=== PATIENT | male | born 1950 | race Caucasian/White ===

== ENCOUNTER 2022-12-21 15:54 | Emergency (ER) | payer MEDICARE, MEDICAID ==
[~2022-12-21] VITALS: Ht 182.9 cm; Wt 109.8 kg
[2022-12-21 21:11] VITALS: BP 128/73; PULSE 65; RESP 16; TEMP 97.5; O2SAT 100
[2022-12-21 23:33] LABS: HEMATOCRIT 39.8 % (42.0-52.0); MONOCYTES # (AUTO) 0.4 X10'3 (0-0.9)
[2022-12-21 23:34] LABS: BASOPHILS % (AUTO) 0.8 % (0-1); EOSINOPHILS % (AUTO) 10.6 % (0-6); HEMOGLOBIN 13.2 g/dl (14.0-17.9); LYMPHOCYTES % (AUTO) 34.8 % (21-51); MEAN CORPUSCULAR HEMOGLOBIN 31.5 PG (27.0-31.0); MEAN CORPUSCULAR HGB CONC 33.2 g/dL (33.0-36.5); MEAN PLATELET VOLUME 8.2 FL (7.4-10.4); MONOCYTES % (AUTO) 6.3 % (2-12); NEUTROPHILS % (AUTO) 47.5 % (42-75); PLATELET COUNT 169 X10'3 (140-440); RED BLOOD COUNT 4.19 X10'6 (4.70-6.10); RED CELL DISTRIBUTION WIDTH 15.5 % (11.5-14.5); WHITE BLOOD COUNT 6.2 X10'3 (4.5-11.0)
[2022-12-21 23:35] LABS: EOSINOPHILS # (AUTO) 0.7 X10'3 (0-0.9); LYMPHOCYTES # (AUTO) 2.2 X10'3 (1.1-4.8)
[2022-12-21 23:46] LABS: ALANINE AMINOTRANSFERASE 27 U/L (12-78); ALBUMIN 3.6 G/DL (3.4-5.0); ALKALINE PHOSPHATASE 34 IU/L (46-116); ANION GAP 5 (8-16); ASPARTATE AMINO TRANSFERASE 20 U/L (10-37); BILIRUBIN,TOTAL 0.5 MG/DL (0.1-1.0); BLOOD UREA NITROGEN 27 MG/DL (7-18); BUN/CREATININE RATIO 19.9 (10.0-20.0); CALCIUM 10.1 MG/DL (8.5-10.1); CHLORIDE 101 MMOL/L (99-107); CREATININE 1.36 MG/DL (0.60-1.10); GLUCOSE 110 MG/DL (70-104); LIPASE 163 U/L (73-393); POTASSIUM 3.9 MMOL/L (3.5-5.1); SODIUM 139 MMOL/L (135-145); TOTAL CARBON DIOXIDE 32.8 MMOL/L (24-32); TOTAL PROTEIN 7.2 G/DL (6.4-8.2); eGFR 52 ML/MIN
[2022-12-22] MEDS ORDERED: iohexol 300mg/ml 100ml inj. ONE (00:42)
== END 2022-12-22 03:18 | disposition home or self-care (01) ==
LOC: ER 15:56
DX: K44.9 Diaphragmatic hernia without obstruction or gangrene (principal); I51.9 Heart disease, unspecified; E11.9 Type 2 diabetes mellitus without complications
CPT/HCPCS: 36415; 74177; 80053; 82948; 83690; 85025; 99285; J3490; Q9967